=== PATIENT | female | born 1980 | race Caucasian/White ===

== ENCOUNTER 2020-07-15 14:42 | Outpatient (REF) | payer MEDICAID, OTHER, SELFPAY ==
--- NOTE | 2020-07-15 | US_ITS ---
EXAMINATION: US DIAGNOSTIC ULTRASOUND BREAST, right CLINICAL INFORMATION: Follow-up new cluster benign-appearing cysts 9:00 right breast 8 cm from nipple. COMPARISON: Targeted ultrasound right breast 01/11/2020, 07/11/2019, mammography 07/11/2019. TECHNIQUE: Ultrasound right breast is targeted to the 7:00 through 11:00 position. Grayscale imaging and color Doppler are performed without and with harmonics. FINDINGS: There is no suspicious finding. No solid mass or architectural abnormality or focal duct ectasia. The acorn cyst noted on 07/11/2019 is no longer demonstrated. There is a group of 3 tiny cysts in the area of follow-up 9:00 position 8 cm from nipple. Each cyst measures just under 3 mm. There is no internal septation or solid component or associated color flow. Results are provided to the patient at time of visit by the technologist. US/US breast RT limited IMPRESSION: A few tiny cysts 9:00 position. No complex cystic lesion or solid mass. ASSESSMENT: BI-RADS 2: Benign RECOMMENDATION: Routine annual mammography screening. This patient's information was entered into a reminder system with a target due date for their next mammogram.
== END 2020-07-15 14:43 | disposition home or self-care (01) ==
LOC: HO.MAMMO 14:42
PROVIDERS: Visit Provider Internal Medicine
DX: N60.01 Solitary cyst of right breast (principal)
CPT/HCPCS: 76642

== ENCOUNTER 2021-01-21 11:00 | Outpatient (REF) | payer MEDICAID, OTHER, SELFPAY ==
--- NOTE | ~2021-01-21 | US_ITS ---
EXAMINATION: US PELVIC AND TRANSVAGINAL CLINICAL INFORMATION: Checking IUD placement COMPARISON: None pertinent TECHNIQUE: Grayscale and color Doppler ultrasound evaluation of the pelvis. Transabdominal and transvaginal imaging were both performed. Transvaginal imaging was performed for more detailed evaluation of the endometrium and adnexa. FINDINGS: UTERUS: Anteverted. Normal size and contour, measuring 8.1 x 3.2 x 5.0 cm (cervix to fundus x AP x transverse). Uniform, homogeneous endometrium measures 0.6 cm in thickness. The cervical length is not measured. An IUD is visualized and appears appropriately positioned within the endometrial canal. RIGHT OVARY: Normal echogenicity measuring 4.9 x 2.9 x 2.8 cm and a volume of 20.8 mL. The size is mildly enlarged due to a thin-walled anechoic simple appearing cyst in the right ovary measuring 3.8 x 2.3 x 3.8 cm. LEFT OVARY: Normal size and echogenicity measuring 1.8 x 1.1 x 1.3 cm and a volume of 1.3 mL. A 1.4 x 1.4 x 1.3 cm dominant follicle is present. FREE FLUID: There is a small amount of pelvic free fluid which is likely physiologic in nature. US/US pelvic and transvaginal IMPRESSION: The IUD appears appropriately positioned within the endometrial canal. There is a simple right ovarian cyst measuring up to 3.8 cm in diameter which is compatible with a benign functional cyst and no follow-up imaging is recommended. The remainder of the examination is unremarkable.
== END 2021-01-21 11:01 | disposition home or self-care (01) ==
LOC: HO.US 11:00
PROVIDERS: PCP Internal Medicine; Visit Provider Advanced Practice Midwife
DX: Z30.431 Encounter for routine checking of intrauterine contraceptive device (principal)
CPT/HCPCS: 76830; 76856

== ENCOUNTER 2021-02-05 12:51 | Outpatient (REF) | payer MEDICAID, OTHER, SELFPAY ==
--- NOTE | ~2021-02-05 | MM_ITS ---
EXAMINATION: MM SCREENING DIGITAL BREAST TOMOSYNTHESIS, BILATERAL CLINICAL INFORMATION: Screening. Asymptomatic. The lifetime risk of breast cancer based on the Tyrer-Cuzick Model is 20.6%. Additional annual screening with breast MRI may be of benefit in women with a Score of 20% or greater. COMPARISON: Mammography: 07/11/2019 TECHNIQUE: Digital breast tomosynthesis is performed in both the craniocaudal and mediolateral oblique views along with computer-aided detection (CAD). Synthesized 2-D images are generated from the tomosynthesis. Bilateral exaggerated craniocaudal views performed. FINDINGS: The breasts are heterogeneously dense, which may obscure small masses (ACR BI-RADS breast composition Category c). The right breast appears stable without new abnormal dominant mass or new more suspicious grouping of microcalcifications identified. In the anterior aspect of the left breast medially, approximately 3 cm from the nipple, there is a 1.0 x 1.1 cm partially circumscribed density for which ultrasound examination is recommended. MM/MM tomosynthesis screening BI IMPRESSION: Left breast density medially for which targeted ultrasound evaluation is recommended. ASSESSMENT: BI-RADS 0: Incomplete - Need Additional Imaging Evaluation. RECOMMENDATION: Recall for left breast ultrasound. This patient's information was entered into a reminder system with a target due date for their next mammogram.
== END 2021-02-05 12:52 | disposition home or self-care (01) ==
LOC: HO.MAMMO 12:51
PROVIDERS: PCP Advanced Practice Midwife; Visit Provider Advanced Practice Midwife
DX: Z12.31 Encounter for screening mammogram for malignant neoplasm of breast (principal)
CPT/HCPCS: 77063; 77067

== ENCOUNTER 2021-02-11 14:28 | Outpatient (REF) | payer MEDICAID, OTHER, SELFPAY ==
--- NOTE | ~2021-02-11 | US_ITS ---
EXAMINATION: US DIAGNOSTIC ULTRASOUND BREAST, LEFT CLINICAL INFORMATION: Recall from screening for smooth oval mass with partially obscured margins medial anterior left breast. COMPARISON: Mammography 02/05/2021, 07/11/2019. TECHNIQUE: Ultrasound left breast is targeted to the 7:00 through 11:00 position. Grayscale imaging and color Doppler are performed without and with harmonics. FINDINGS: There is a simple cyst 9:00 position anterior breast measuring 1.2 x 1.0 x 0.6 cm. This corresponds to the finding on recent mammography. There is no focal suspicious finding. There is no solid mass, architectural abnormality, duct ectasia, or edema in the soft tissue planes. Results are discussed with the patient at time of visit, using an chargemaster analyst. US/US breast LT limited IMPRESSION: Incidental cyst anterior 9:00 left breast corresponding to finding on recent mammography, measuring 1.2 cm. ASSESSMENT: BI-RADS 2: Benign RECOMMENDATION: Routine annual mammography screening. This patient's information was entered into a reminder system with a target due date for their next mammogram.
== END 2021-02-11 14:29 | disposition home or self-care (01) ==
LOC: HO.MAMMO 14:28
PROVIDERS: Visit Provider Advanced Practice Midwife
DX: R92.2 Inconclusive mammogram (principal)
CPT/HCPCS: 76642

== ENCOUNTER 2022-02-15 09:51 | Outpatient (REF) | payer MEDICAID, OTHER, SELFPAY ==
--- NOTE | ~2022-02-15 | MM_ITS ---
EXAMINATION: MM SCREENING DIGITAL BREAST TOMOSYNTHESIS, BILATERAL CLINICAL INFORMATION: Screening. Asymptomatic. The lifetime risk of breast cancer based on the Tyrer-Cuzick Model is 21%. COMPARISON: Mammography: 02/05/2021, 07/11/2019 (new baseline), left breast ultrasound 02/11/2021, right breast ultrasound 07/15/2020 and 01/11/2020. TECHNIQUE: Digital breast tomosynthesis is performed in both the craniocaudal and mediolateral oblique views along with computer-aided detection (CAD). Synthesized 2D images are generated from the tomosynthesis. FINDINGS: The breasts are heterogeneously dense, which may obscure small masses (ACR BI-RADS breast composition Category c). Parenchymal pattern is similar to prior studies and there is no interval mass or architectural abnormality or developing density. Again, there are random diffuse bilateral scattered round calcifications. The axilla are unremarkable. No significant changes. MM/MM tomosynthesis screening BI IMPRESSION: No mammographic evidence of malignancy. ASSESSMENT: BI-RADS 2: Benign RECOMMENDATION: Routine annual mammography screening. This patient's information was entered into a reminder system with a target due date for their next mammogram.
== END 2022-02-15 09:52 | disposition home or self-care (01) ==
LOC: HO.MAMMO 09:51
PROVIDERS: Visit Provider Internal Medicine
DX: Z12.31 Encounter for screening mammogram for malignant neoplasm of breast (principal)
CPT/HCPCS: 77063; 77067

== ENCOUNTER 2023-03-07 15:12 | Outpatient (REF) | payer MEDICAID, OTHER, SELFPAY ==
--- NOTE | ~2023-03-07 | MM_ITS ---
EXAMINATION: MM SCREENING DIGITAL BREAST TOMOSYNTHESIS, BILATERAL CLINICAL INFORMATION: Screening. Asymptomatic. The lifetime risk of breast cancer based on the Tyrer-Cuzick Model is 17.9%. COMPARISON: Mammography: 02/16/2022, 02/05/2021, 07/11/2019 (new baseline), left breast ultrasound 02/11/2021, right breast ultrasound 07/15/2020 and 01/11/2020. TECHNIQUE: Digital breast tomosynthesis is performed in both the craniocaudal and mediolateral oblique views along with computer-aided detection (CAD). Synthesized 2D images are generated from the tomosynthesis. FINDINGS: The breasts are heterogeneously dense, which may obscure small masses (ACR BI-RADS breast composition Category c). There are bilateral scattered global calcifications, with benign morphology, without change. There are no suspicious masses, suspicious grouped calcifications, or areas of architectural distortion. The parenchymal pattern is stable from prior exams. MM/MM tomosynthesis screening BI IMPRESSION: No mammographic evidence of malignancy. Stable benign findings. ASSESSMENT: BI-RADS BI-RADS 2 - Benign Findings RECOMMENDATION: Routine annual mammography screening. 1 year F/U This examination should not preclude the clinical evaluation of a suspicious palpable abnormality. This patient's information was entered into a reminder system with a target due date for their next mammogram.
== END 2023-03-07 15:13 | disposition home or self-care (01) ==
LOC: HO.MAMMO 15:12
PROVIDERS: PCP Internal Medicine; Visit Provider Internal Medicine
DX: Z12.31 Encounter for screening mammogram for malignant neoplasm of breast (principal)
CPT/HCPCS: 77063; 77067

== ENCOUNTER → 2023-03-07 15:30 | Outpatient (BNV) | payer MEDICAID, SELFPAY | PROVIDERS: PCP Internal Medicine; Visit Provider Radiology Diagnostic Radiology | DX: Z12.31 Encounter for screening mammogram for malignant neoplasm of breast (principal) | CPT/HCPCS: 77063; 77067 ==

== ENCOUNTER 2023-07-26 12:49 | Outpatient (REF) | payer MEDICAID, OTHER, SELFPAY ==
[2023-07-27 10:04] LABS: HCG Tumor Marker 1348 mIU/mL
== END 2023-07-26 12:50 | disposition home or self-care (01) ==
LOC: HO.CHCLDS 12:49
PROVIDERS: Visit Provider Internal Medicine
DX: N92.6 Irregular menstruation, unspecified (principal)
CPT/HCPCS: 36415; 84702

== ENCOUNTER 2023-11-22 16:30 | Outpatient (REF) | payer OTHER, SELFPAY ==
[2023-11-23 13:25] LABS: BV Int Neg Control Negative (Negative); BV Int Pos Control Positive (Positive)
== END 2023-11-22 16:31 | disposition home or self-care (01) ==
LOC: HO.CHCLNP 16:30
PROVIDERS: Visit Provider Advanced Practice Midwife
DX: N89.8 Other specified noninflammatory disorders of vagina (principal)
CPT/HCPCS: 87480; 87510; 87660

== ENCOUNTER 2024-03-12 14:55 | Outpatient (REF) | payer MEDICAID, SELFPAY ==
--- NOTE | ~2024-03-12 | MM_ITS ---
EXAMINATION: MM SCREENING DIGITAL BREAST TOMOSYNTHESIS, BILATERAL CLINICAL INFORMATION: Screening. Asymptomatic. COMPARISON: Mammography: This study is compared with prior exams dating back to 2020. TECHNIQUE: Digital breast tomosynthesis is performed in both the craniocaudal and mediolateral oblique views along with computer-aided detection (CAD). Synthesized 2D images are generated from the tomosynthesis. FINDINGS: The breasts are heterogeneously dense, which may obscure small masses (ACR BI-RADS breast composition Category c). There are no significant masses, abnormal calcifications, or other abnormalities. Bilateral benign calcifications are present. MM/MM tomosynthesis screening BI IMPRESSION: No mammographic evidence of malignancy. ASSESSMENT: BI-RADS BI-RADS 2 - Benign Findings RECOMMENDATION: Routine annual mammography screening. 1 year F/U This examination should not preclude the clinical evaluation of a suspicious palpable abnormality. This patient's information was entered into a reminder system with a target due date for their next mammogram. Electronically signed by: Lena Mcintyre MD 04/05/2024 08:36 PM EDT
== END 2024-03-12 14:56 | disposition home or self-care (01) ==
LOC: HO.MAMMO 14:55
PROVIDERS: PCP Internal Medicine; Visit Provider Internal Medicine
DX: Z12.31 Encounter for screening mammogram for malignant neoplasm of breast (principal)
CPT/HCPCS: 77063; 77067

== ENCOUNTER → 2024-03-12 15:00 | Outpatient (BNV) | payer MEDICAID, SELFPAY | PROVIDERS: PCP Internal Medicine; Visit Provider Radiology Diagnostic Radiology | DX: Z12.31 Encounter for screening mammogram for malignant neoplasm of breast (principal) | CPT/HCPCS: 77063; 77067 ==

== ENCOUNTER 2024-04-10 09:36 | Outpatient (REF) | payer MEDICAID, SELFPAY ==
[2024-04-10 14:05] LABS: MANUAL DIFF FLAG NO
[2024-04-10 14:14] LABS: Basophils Percent Auto 0.4 % (0-2); Eosinophils Absolute Auto 0.1 X10*3/uL (0.0-0.4); Eosinophils Percent Auto 1.8 % (0-4); Hematocrit 38.2 % (37.0-47.0); Hemoglobin 12.7 g/dl (12.0-16.0); Imm Gran Abs Auto 0.01 X10*3/uL (0.00-0.03); Imm Gran Pct Auto 0.2 % (0.0-0.4); Lymphocytes Absolute Auto 1.6 X10*3/uL (1.2-4.9); Lymphocytes Percent Auto 32.5 % (20-40); Mean Corpuscular HGB Conc 33.2 g/dl (31.0-35.0); Mean Corpuscular Hemoglobin 30.6 pg (27.0-33.0); Mean Platelet Volume 12.2 fL (9.4-12.3); Monocytes Absolute Auto 0.4 X10*3/uL (0.1-1.2); Monocytes Percent Auto 7.7 % (2-11); Neutrophils Absolute Auto 2.8 x10*3/uL (2.0-8.3); Neutrophils Percent Auto 57.4 % (45-73); Platelet Count 168 X10*3/uL (160-400); Red Blood Count 4.15 X10*6/uL (4.20-5.50); Red Cell Distribution Width 12.2 % (11.0-16.0); White Blood Count 4.9 X10*3/uL (4.8-10.8)
[2024-04-10 14:36] LABS: Alanine Aminotransferase 21 U/L (0-31); Albumin Level 4.1 g/dL (3.5-5.0); Alkaline Phosphatase 34 U/L (39-117); Anion Gap 10 (12-20); Aspartate Amino Transferase 17 U/L (5-31); Bilirubin Total 0.5 mg/dL (0.0-1.0); Blood Urea Nitrogen 10 mg/dL (9-16); Calcium 8.8 mg/dL (8.4-10.2); Carbon Dioxide 26 mmol/L (22-29); Chloride 106 mmol/L (96-108); Cholesterol 159 mg/dL (<200); Estimated Glomerular Filt Rate > 60; Glucose Random 81 mg/dL (60-115); HDL Cholesterol 51 mg/dL (>40); LDL Cholesterol Calculated 101 mg/dL (<100); Potassium 3.5 mmol/L (3.3-5.1); Sodium 138 mmol/L (135-145); Total Protein 6.4 g/dL (6.5-8.0); Triglycerides 39 mg/dL (<150)
[2024-04-10 14:53] LABS: TSH reflex Free T4 1.43 uIU/mL (0.32-4.0)
[2024-04-11 04:57] LABS: HIV AB/AG Nonreactive (Nonreactive); HIV Num 1 0.04 S/CO (0.00-0.99); ~HepC Num1 0.25 S/CO (0.00-0.79); ~Hepatitis C Antibody Nonreactive (Nonreactive)
== END 2024-04-10 09:37 | disposition home or self-care (01) ==
LOC: HO.CHCLDS 09:36
PROVIDERS: Visit Provider Internal Medicine
DX: E78.2 Mixed hyperlipidemia (principal)
CPT/HCPCS: 36415; 80053; 80061; 84443; 85025; 86803; 87389

== ENCOUNTER 2024-05-18 14:18 | Outpatient (REF) | payer MEDICAID, SELFPAY ==
[2024-05-18 18:05] LABS: HCG Quantitative 19209 mIU/mL
== END 2024-05-18 14:19 | disposition home or self-care (01) ==
LOC: HO.CHCLDS 14:18
PROVIDERS: Visit Provider Internal Medicine
DX: Z32.01 Encounter for pregnancy test, result positive (principal)
CPT/HCPCS: 36415; 84702

== ENCOUNTER 2025-04-08 13:28 | Outpatient (REF) | payer MEDICAID, SELFPAY ==
--- NOTE | ~2025-04-08 | MM_ITS ---
EXAMINATION: MM SCREENING DIGITAL BREAST TOMOSYNTHESIS, BILATERAL CLINICAL INFORMATION: Screening. Asymptomatic. COMPARISON: Mammography: Comparison is made with available priors TECHNIQUE: Digital breast mammography with tomosynthesis is performed in both the craniocaudal and mediolateral oblique views along with computer-aided detection (CAD). FINDINGS: The breasts are heterogeneously dense, which may obscure small masses (ACR BI-RADS breast composition Category c). There are no significant masses, abnormal calcifications, or other abnormalities. MM/MM tomosynthesis screening BI IMPRESSION: No mammographic evidence of malignancy. ASSESSMENT: BI-RADS BI-RADS 1 - Negative RECOMMENDATION: Routine annual mammography screening. 1 year F/U This examination should not preclude the clinical evaluation of a suspicious palpable abnormality. This patient's information was entered into a reminder system with a target due date for their next mammogram. Electronically signed by: Aylin Hills DO 04/12/2025 05:10 PM EDT
--- OUTSIDE RECORDS SUMMARY | 2025-04-08 15:44 | XMS_ITS | Encounter Summary ---
Author Organization [employer] Address [address] [place] [address] Care Team Providers Care Tax Examining Technician Name Role Phone Keagan Gallardo MD Primary Care Prov ider Encounter Details Date Type Department Care Team (Latest Contact Info) Description 09/13/2019 Abstract [facility] CONVERSIONS Dental, Provider, DDS Social History Tobacco Use Types Packs/Day Years Used Date Smoking Tobacco: Never Assessed Comments Unknown Sex and Gender Information Value Date Recorded Sex Assigned at Female 05/31/2022 10:36 AM EDT Legal Sex Female 10:36 AM EDT Gender Identity Female 05/31/2022 10:36 AM EDT Sexual Orientation Straight 05/31/2022 10 :36 AM EDT documented as of this encounter Plan of Treatment Upcoming Encounters Date Type Department Care Team ( st Contact Info) Description 06/03/2025 10:00 AM EST Office Visit [facility] [address] [place] [address] Carlos Bean documented as of this encounter Visit Diagnoses Not on filedocumented in this encounter Care Teams Tax Examining Technician Relationship Specialty Start Date End Date Keagan Gallardo MD [address] [place] [address] PCP - General Internal Medicine 12/30/19 documented as of this encounter
--- OUTSIDE RECORDS SUMMARY | 2025-04-08 15:44 | XMS_ITS | Encounter Summary ---
Author Organization [employer] Address [address] [place] [address] Care Team Providers Care Customer Account Specialist Name Role Phone Keagan Gallardo MD Primary Care Prov ider Encounter Details Date Type Department Care Team (Latest Contact Info) Description 09/30/2021 Abstract [facility] CONVERSIONS Dental, Provider, DDS Social History [...] 10:00 AM EST Office Visit [facility] [address] [place] [address] Carlos Bean documented as of this encounter Visit Diagnoses Not on filedocumented in this encounter Care Teams Customer Account Specialist Relationship Specialty Start Date End Date Keagan Gallardo MD [address] [place] [address] PCP - General Internal Medicine 12/30/19 documented as of this encounter
--- OUTSIDE RECORDS SUMMARY | 2025-04-08 15:44 | XMS_ITS | Clinical Summary ---
Author Organization [email or web address] Address [address] [place] [address] Care Team Providers Care Emt Dispatcher Name Role Phone Keagan Gallardo MD Primary Care Prov ider Allergies Active Allergy Reactions Criticality Noted Date Comments Acetaminophen 01/24/2023 Amoxicillin 01/24/2023 Aspirin 01/24/2023 Ibuprofen 01/24/2023 Naproxen 01/24/2023 Octacosanol 11/21/2023 Medications fluticasone (Flonase) 50 MCG/ACT nasal spray Administer 1-2 sprays into each nostril in the morning. Shake gently. Before first use, prime pump. After use, clean tip and replace cap. 16 g 2 3 Active chlorhexidine (Peridex) 0.12 % solution Swish 15 mL morning and night for 1 minute. Spit, do not swallow. Do not eat or drink for 30 minutes following use. 473 mL 4 Active Additional Information Patient not taking.Reported on 01/30/2024 multivitamin () 27-0.8 MG tablet TAKE ONE TABLET DAILY 90 tablet 3 5 Active Active Problems Problem Noted Date Diagnosed Date Actinic keratoses 05/03/2024 Assessment & Plan (05/03/2024 2:01 PM EDT): Will refer to dermatology for evaluation of facial lesion Female fertility problem 12/22/2023 Assessment & Plan (05/03/2024 1:59 PM EDT): Follow up with fertility clinic, continue multivitamins Assessment & Plan (12/22/2023 1:39 PM EDT): Will make referral for fertility clinic, patient refers changed insurance recently Renewed multivitamin Spontaneous 08/22/2023 Assessment & Plan (08/22/2023 1:26 PM EST): Patient started bleeding last Tuesday, when she visited er, since it persisted she visited again the er yesterday and blood test confirmed , she has no pain, with vaginal bleeding, has a appointment with ob-sandwich peddler on September, will follow reccomendations Seasonal allergies 12/16/2022 Assessment & Plan (03/14/2023 2:07 PM EDT): Controlled on flonase, no changes will be made Assessment & Plan (12/16/2022 2:19 PM EDT): Will prescribe flonase, avoid prolonged exposure to pollen, call back if not improving Screening mammogram for breast cancer 08/10/2022 Assessment & Plan (08/10/2022 10:11 PM EST): Will send for mammogram Joint swelling 08/10/2022 Assessment & Plan (12/16/2022 2:18 PM EDT): Patient refers symptoms resolved, labs were reviewed, told she may take tylenol/ibuprofen for pain, apply cold pads, and rest joints Assessment & Plan (08/10/2022 10:12 PM EST): No rash, no nodules palpated, no swelling on today examination, she refers she was told she has RA when she was living in [place], will order rheumatologic workup as well as routine workup. Encounters Date Type Department Care Team Description 01/10/2025 Refill [facility] [address] [place] [address] Keagan Gallardo MD from Last 3 Months Immunizations Immunization Administration Dates Next Due Influenza Injectable Quadriv alant Preservative Free IIV4 MDCK 07/12/2022 Influenza injectable quadriv alent IIV4 with preservative 06/21/2019 Influenza injectable quadrivalent preservative f ree 09/16/2021 Pfizer Covid-19 Vaccine 12+ deedee-sucrose (Judd C ap) 08/17/2021 Social History Tobacco Use Types Packs/Day Years Used Date Smoking Tobacco: Never Passive Smoke Exposure: Never Smokeless Tobacco: Never Tobacco Cessation:Counseling Given: Not Answered Alcohol Use Standard Drinks/Week Comments Yes 1 (1 standard drink = 0.6 oz pur e alcohol) Depression Answer Date Recorded Patient Health Questionnaire-9 Score 0 04/09/2024 Patient Health Questionnaire-9 Score 0 04/09/2024 Last PHQ-9: Questionnaire Data Not on file 0 04/09/2024 Housing Stability Answer Date Recorded What is your housing situation today? I have nahomi hidalgo 04/09/[address] you li ve. Do you have problems with any of the following? None of the above 04/09/2024 Food Insecurity Answer Date Recorded Within the past 12 months, y ou worried that your food would run out before you got money to buy more: Never True 04/09/2024 Within the past 12 months,th e food you bought just didn't last and you didn't have enough money to get more: Never True 04/2024 Transportation Answer Date Recorded In the past 12 months, has l ack of transportation kept you from medical appts, meetings, work or from getting things needed for daily living? No 04/09/2024 Utilities Answer Date Recorded In the past 12 months, has t he electric, gas, oil or water company threatened to shut off services in your home? No 05/24/2023 Depression Answer Date Recorded Patient Health Questionnaire-2 Score 0 04/09/2024 Internet Access Answer Date Recorded Internet Access Q1 Yes 04/09/2024 Internet Access Q2 I do not want or need it 04/2024 Comments No Sex and Gender Information Value Date Recorded Sex Assigned at Female 05/31/2022 10:36 AM EDT Legal Sex Female 10:36 AM EDT Gender Identity Female 05/31/2022 10:36 AM EDT Sexual Orientation Straight 05/31/2022 10 :36 AM EDT Last Filed Vital Signs Vital Sign Reading Time Taken Comments Blood Pressure 124/80 12/03/2024 8:45 AM EDT Pulse 66 11/26/2024 10:08 AM EDT Temperature 36.8 C (98.3 F) 09/04/2024 10:42 AM EST Respiratory Rate 16 09/04/2024 10:42 AM EST Oxygen Saturation 98% 09/04/2024 10:42 AM EST Inhaled Oxygen Concentration - - Weight 77.1 kg (170 lb) 09/04/2024 10:42 AM EST Height 174 cm (5' 8.5 ) 09/04/2024 10:42 AM EST Body Mass Index 25.47 09/04/2024 10:42 AM EST Plan of Treatment Upcoming Encounters Date Type Department Care Team (Late st Contact Info) Description 06/03/2025 10:00 AM EST Office Visit [facility] [address] [place] [address] Carlos Bean Health Maintenance Due Date Last Done Comments Disability Screening 1980 Alcohol/Substance Use Screening 1992 Family Planning (PISQ) 1995 HPV Vaccines (1 - 3-dose series) 1995 DTaP/Tdap/Td Vaccines (1 - Tdap) 1999 Hepatitis B Vaccines (1 of 3 - 19+ 3-dose series) 1999 SDOH Screening 08/10/2023 08/10/2022 COVID-19 Vaccine (2 - 2024- season) 2025 08/17/2021 Influenza Vaccine (#1) 2025 2, 07/12/2022, 09/16/2021, Additional history exists Depression Screening 04/09/2025 04/09/2024, 04/09/20 24 Dental Oral Exam 05/29/2025 11/26/2024, 12/2023, 01/24/2023, Additional history exists Dental Prophylaxis 05/29/2025 11/26/2024, 1 , 11/21/2023, Additional history exists Dental X-Ray: Bitewings 11/27/2025 11/27/19 25, 12/05/2023, 01/24/2023, Additional history exists Tobacco Screening 12/03/2025 12/03/2024 Dental X-Ray: Full Mouth 01/25/2026 01/24/2023, 09/01 Mammogram 03/12/2026 03/12/2024, 07/11/2019 Cervical Cancer Screening 06/03/2028 HPV/Cotest 06/03/2028 06/03/2023, 09/18/2019 Pap Smear 06/03/2028 06/03/2023 Zoster Vaccines (1 of 2) 2030 RSV Patients and Patients Aged 60 years or older (1 - 1-dose 75+ series) 2055 HIV Screening Completed 04/10/2024 Hepatitis C Screening Completed 04/10/2024 HIB Vaccines Aged Out No longer eligi ble based on patient's age to complete this topic Hepatitis A Vaccines Aged Out No long er eligible based on patient's age to complete this topic IPV Vaccines Aged Out No longer eligi ble based on patient's age to complete this topic Meningococcal B Vaccine Aged Out No l onger eligible based on patient's age to complete this topic Meningococcal Vaccine Aged Out No home veronica eligible based on patient's age to complete this topic Pneumococcal Vaccine: Pediatrics (0 to 5 Years) and At-Risk Patients (6 to 49) Years Aged Out No longer eligible based on patient's age to complete this topic RSV under 20 months Aged Out No longe r eligible based on patient's age to complete this topic Rotavirus Vaccines Aged Out No longer eligible based on patient's age to complete this topic Procedures Procedure Name Priority Date/Time Associated Diagnosis Comments PROPHYLAXIS - ADULT Routine 11/26/2024 1 0:00 AM EDT BITEWINGS - 4 RADIOGRAPHIC IMAGES Routine 11/26/2024 10:00 AM EDT PERIODIC ORAL EVALUATION - ESTABLISHED PATIENT Routine 11/26/2024 10:00 AM EDT HEPATITIS C AB W/REFL TO HCV RNA, QN, PCR Routine 04/10/2024 9:38 AM EDT Mixed hyperlipidemia HIV 1/2 ANTIGEN/ANTIBODY, FOURTH GENERATION W/RFL Routine 04/10/2024 9:38 AM EDT Mixed hyperlipidemia BI MAMMOGRAM SCREENING TOMOSYNTHESIS BILATERAL Routine 03/12/2024 3:00 PM EDT HM PAP/HPV Routine 06/03/2023 INTRAORAL - COMPLETE SERIES OF RADIOGRAPHIC IMAGES Routine 01/24/2023 9:00 AM EDT from Last 3 Months or Most Recently Relevant to Health Maintenance Results * Hepatitis C Antibody with Reflex to HCV, RNA, Quantitative, Real-Time PCR (04/10/2024 9:38 AM EDT) Hepatitis C Antibody Nonreactive Nonreactive [facility] Comment:Antibodies to HCV no t detected; does not exclude early acuteHCV infection. Blood Venous blood specimen / Unknown 04/10/2024 9:38 AM EDT 04/10/2024 2:01 PM EDT us Keagan Greene MD LAB BLOOD ORDERABL ES Final Result [facility] [address] [place] [phone] * HIV-1/2 Antigen and Antibodies, Fourth Generation, with Reflexes (04/10/2024 9:38 AM EDT) HIV AB/AG Nonreactive Nonreactive [facility] Comment:HIV-1 p24 Ag and/or HIV-1/HIV-2 Ab not detected.A test result that is nonreactive does not exclude thepossibility of exposure to or infection with HIV-1 and/orHIV-2. Nonreactive results in this assay for individualswith prior exposure to HIV-1 and/or HIV-2 may be due toantigen and antibody levels that are below the limit ofdetection of this assay.The [employer] HIV Ag/Ab Combo assay result andsupplemental assay results should be interpreted inconjunction with the patient's clinical presentation,history and other laboratory results. If the results areinconsistent with clinical evidence, additional testing issuggested to confirm the result. Blood Venous blood specimen / Unknown 04/10/2024 9:38 AM EDT 04/10/2024 2:01 PM EDT us Keagan Greene MD LAB BLOOD ORDERABL ES Final Result [facility] [address] [place] [address] [phone] * BI Mammogram Screening Tomosynthesis Bilateral (03/12/2024 3:00 PM EDT) Anatomical Region Laterality Modality Breast Bilateral Mammography 03/12/2024 3:00 PM EDT Narrative 04/05/2024 8:39 PM EDT [address] [place] [address] Mammography Report Signed Patient: Carlos Manuel Niño MR#: [id number] : 1980 Acct:[id number] Age/Sex: 43 / F ADM Date: 03/12/24 Loc: HO.MAMMO Attending Dr: Billy Santoro MD Ordering Physician: Keagan Gallardo MD Res ults: 2Benign Findings Date of Service: 03/12/24 Follow Up: 1 Year From [facility] Mammogram Procedure(s): MM tomosynthesis screening BI Accession Number(s): [id number] cc: Keagan Gallardo MD EXAMINATION: MM SCREENING DIGITAL BREAST TOMOSYNTHESIS, BILATERAL CLINICAL INFORMATION: Screening. Asymptomatic. COMPARISON: Mammography: This study is compared with prior exams dating back to 2020. TECHNIQUE: Digital breast tomosynthesis is performed in both the craniocaudal and mediolateral oblique views along with computer-aided detection (CAD). Synthesized 2D images are generated from the tomosynthesis. FINDINGS: The breasts are heterogeneously dense, which may obscure small masses (ACR BI-RADS breast composition Category c). There are no significant masses, abnormal calcifications, or other abnormalities. Bilateral benign calcifications are present. MM/MM tomosynthesis screening BI IMPRESSION: No mammographic evidence of malignancy. ASSESSMENT: BI-RADS BI-RADS 2 - Benign Findings RECOMMENDATION: Routine annual mammography screening. 1 year F/U This examination should not preclude the clinical evaluation of a suspicious palpable abnormality. This patient's information was entered into a reminder system with a target due date for their next mammogram. Electronically signed by: Lena Mcintyre MD 04/05/2024 08:36 PM EDT RP Dictated By: Lena Mcintyre MD Signed By: <Electronically signed by Lena Mcintyre MD in OV> 04/05/242035 DD/ 1500 TD/TT: 03/12/24 1523 Field Contractor: Procedure Note Donotuseinterpreter, Image - 04/05/2024 [facility] [address] [place] [address] Mammography Report Signed Patient: Carlos Manuel NiñoMR#: [id number] : 1980Acct:[id number] Age/Sex: 43 / FADM Date: 03/12/24 Loc: HO.MAMMO Attending Dr: Billy Santoro MD Ordering Physician: Keagan Gallardo ults: 2Benign Findings Date of Service: 03/12/24Follow Up: 1 Year From Orig ina Mammogram Procedure(s): MM tomosynthesis screening BI Accession Number(s): [id number] cc: Keagan Gallardo MD EXAMINATION: MM SCREENING DIGITAL BREAST TOMOSYNTHESIS, BILATERAL CLINICAL INFORMATION: Screening. Asymptomatic. COMPARISON: Mammography: This study is compared with prior exams dating back to 2020. TECHNIQUE: Digital breast tomosynthesis is performed in both the craniocaudal and mediolateral oblique views along with computer-aided detection (CAD). Synthesized 2D images are generated from the tomosynthesis. FINDINGS: The breasts are heterogeneously dense, which may obscure small masses (ACR BI-RADS breast composition Category c). There are no significant masses, abnormal calcifications, or other abnormalities. Bilateral benign calcifications are present. MM/MM tomosynthesis screening BI IMPRESSION: No mammographic evidence of malignancy. ASSESSMENT: BI-RADS BI-RADS 2 - Benign Findings RECOMMENDATION: Routine annual mammography screening. 1 year F/U This examination should not preclude the clinical evaluation of a suspicious palpable abnormality. This patient's information was entered into a reminder system with a target due date for their next mammogram. Electronically signed by: Lena Mcintyre MD 04/05/2024 08:36 PM EDT RP Dictated By: Lena Mcintyre MD Signed By: <Electronically signed by Lena Mcintyre MD in OV> 04/05/242035 DD/ 1500 TD/TT: 03/12/24 1523 Field Contractor: Keagan Greene MD IMG BI PROCEDURES Edited Result - Final * Pap Smear (06/03/2023) Pap Negative for intraephithelial lesion or malignancy Negative for intraephithelial lesion or malignancy, Other HPV Undetected Undetected, Indeterminate, Quantitative, Not Detected us Historical Provider HEALTH MAINTENANCE Final Result from Last 3 Months or Most Recently Relevant to Health Maintenance [place] [address] C3 DENTAL-[facility] MEDICAID STAND ADULT Care Teams Emt Dispatcher Relationship Specialty Start Date End Date Keagan Gallardo MD [address] [place] [phone] PCP - General Internal Medicine 12/30/19
--- OUTSIDE RECORDS SUMMARY | 2025-04-08 15:44 | XMS_ITS | Clinical Summary ---
Author Organization [facility] Address [address] [place] [address] Care Team Providers Care Obgyn Nurse Name Role Phone Keagan Gallardo MD Primary Care Prov ider Allergies Active Allergy Reactions Criticality Noted Date Comments Amoxicillin Swelling High 01/24/2023 Aspirin Swelling High 01/24/2023 Ibuprofen Swelling High 01/24/2023 Naproxen Swelling High 01/24/2023 Medications No known medications Social History Tobacco Use Types Packs/Day Years Used Date Smoking Tobacco: Never Passive Smoke Exposure: Never Smokeless Tobacco: Never Tobacco Cessation:Counseling Given: Not Answered Alcohol Use Standard Drinks/Week Comments Never 0 (1 standard drink = 0.6 oz pur e alcohol) Comments No Sex and Gender Information Value Date Recorded Sex Assigned at Female 11/30/2023 2:06 PM EDT Legal Sex Female 10:15 AM EST Gender Identity Female 09/03/2024 11:27 AM EST Sexual Orientation Other 09/03/2024 11 :27 AM EST Last Filed Vital Signs Vital Sign Reading Time Taken Comments Blood Pressure 112/74 09/03/2024 2:25 PM EST Pulse - - Temperature - - Respiratory Rate - - Oxygen Saturation - - Inhaled Oxygen Concentration - - Weight 76.7 kg (169 lb) 09/03/2024 2:25 PM EST Height 175 cm (5' 8.9 ) 06/03/2023 2:05 PM EDT Body Mass Index 25.03 06/03/2023 2:05 PM EDT Plan of Treatment Health Maintenance Due Date Last Done Comments HPV and Pap Smear 1980 Varicella Vaccines (1 of 2 - 13+ 2-dose series) 1993 Hepatitis B Vaccines (1 of 3 - 19+ 3-dose series) 1999 DTaP,Tdap,and Td Vaccines (1 - Tdap) 2002 Mammogram 07/11/2021 07/11/2019 Alcohol/Substance Use Screening 08/01/2024 Depression Screening and Follow-Up 08/01/2024 Social Drivers of Health Annual Screening 08/01/2024 COVID-19 Vaccine (4 - 2024-2 6 season) 2025 08/17/2021, 12/04/2020, 11/12/2020 Influenza Vaccine (#1) 2025 , 09/16/2021, 06/21/2019 Cervical Cancer Screening 06/03/2026 Pap Smear 06/03/2026 06/03/2023 RSV Vaccine (60+ years old and patients) (1 - 1-dose 75+ series) 2055 HIV Screening Completed 04/10/2024, 04/10/2024 Hepatitis C Screening Completed 04/10/2024 Pneumococcal Vaccine: Pediatric (0-5 Years) and At-Risk Patients (6-50 Years) Aged Out No longer eligible based on patient's age to complete this topic Procedures * Due to [place] law, this organization might not be sharing negative HIV tests. Procedure Name Priority Date/Time Associated Diagnosis Comments PAP Routine 06/03/2023 3:09 PM EDT Cervical cancer screening from Last 3 Months or Most Recently Relevant to Health Maintenance Results * Due to [facility] law, this organization might not be sharing negative HIV tests. * Pap (06/03/2023 3:09 PM EDT) Specimen Adequacy Satisfactory for evaluation [facility] MANUAL 3 2:17 PM EST [facility] Pathologist Cytology Interpretation Negative for intraepithelial lesion or malignancy. [facility]UAL 3 2:17 PM EST [facility] at 1417 EST Comment:This is the result o f a morphological screening test with an inherent possibility of a false negative interpretation. [employer] Specialist Statement This Pap test was examined by the [facility] System, [employer], [place], [place]. This Pap test was examined in accordance with the [facility] Cytopathology Laboratory written policy, which incorporates all CLIA mandates. Current screening guidelines can be found in [place]: A Cancer Journal for Clinicians 2020;70:321-346. Current [facility]P management guidelines for abnormal Pap tests are published in the Journal Lower Genital Tract Disease Volume 2020;24:102-131. [facility] 3 2:17 PM EST [facility] Clinical History screening [facility] 3 2:17 PM EST [facility] Resulting Agency Case was signed out at [facility], Department of Pathology, [employer] 3 CLIA [id number] [facility] 3 2:17 PM EST [facility] Report Header Gynecologic Cytology Report Case: [id number] Authorizing Provider: Ladi Gibson MD MPH Collected: 06/03/2023 1509 Ordering Location: [facility] Received: 06/03/[address] [place] [address] [facility] First Screen: Meli Galo Specimen: Screening Th[facility]Prep Pap, Cervix/Endocervix 3 2:17 PM EST [facility] Brushing Cervix uteri structure / Unknown Non-Blood Collection / Unknown 06/03/2023 3:09 PM EDT 06/03/2023 3:50 PM EDT us Ladi Gibson MD MPH LAB PATHOLOGY/CYTOLOGY [facility]Y BALTAZAR Final Result [facility] [address] [place] [id number] from Last 3 Months or Most Recently Relevant to Health Maintenance Insurance [place] [address] [facility] Care Teams Obgyn Nurse Relationship Specialty Start Date End Date Keagan Gallardo MD [address] [place] [phone] PCP - General Internal Medicine 03/26/24
== END 2025-04-08 13:29 | disposition home or self-care (01) ==
LOC: HO.MAMMO 13:28
PROVIDERS: PCP Internal Medicine; Visit Provider Internal Medicine
DX: Z12.31 Encounter for screening mammogram for malignant neoplasm of breast (principal)
CPT/HCPCS: 77063; 77067

== ENCOUNTER → 2025-04-08 14:30 | Outpatient (BNV) | payer MEDICAID, SELFPAY | PROVIDERS: PCP Internal Medicine; Visit Provider Internal Medicine | DX: Z12.31 Encounter for screening mammogram for malignant neoplasm of breast (principal) | CPT/HCPCS: 77063; 77067 ==